=== PATIENT | female | born 1970 | race Two or more races ===

== ENCOUNTER 2019-01-01 15:09 | Outpatient (CLI) | payer SELFPAY | END 2019-01-01 17:09 | disposition home or self-care (01) | LOC: MRI 15:09 | DX: S83.207A Unspecified tear of unspecified meniscus, current injury, left knee, initial encounter (principal); X58.XXXA Exposure to other specified factors, initial encounter; Y92.9 Unspecified place or not applicable ==

== ENCOUNTER 2019-05-15 09:39 | Emergency (ER) | payer BC ==
[~2019-05-15] VITALS: Ht 165.1 cm; Wt 122.5 kg
[2019-05-15 10:00] VITALS: BP 130/85
--- NOTE | 2019-05-15 10:00 | NUR ---
ED Nurse Note: pt walked in to ED due to burning urination since last Fri. chills last night and no fever at the triage. AAO x4. respirations even and non-labored noted. urine sample sent. will wait for the further order.
[2019-05-15 10:21] LABS: APPEARANCE,URINE CLEAR; BILIRUBIN, URINE NEGATIVE (NEGATIVE); GLUCOSE, URINE (UA) NEGATIVE (NEGATIVE); KETONES,URINE NEGATIVE (NEGATIVE); LEUKOCYTE ESTERASE ,URINE 3+ (NEGATIVE); NITRITE,URINE POSITIVE (NEGATIVE); PH,URINE 6.5 (4.5-8.0); PROTEIN,URINE 1+ (NEGATIVE); UROBILINOGEN,URINE 1 MG/DL (0.0-1.0)
[2019-05-15 10:30] LABS: COLOR,URINE YELLOW
--- NOTE | 2019-05-15 10:40 | Emergency Room Report ---
History of Present Illness General Chief Complaint: Female Urogenital Problems Source: Patient Present Illness HPI Patient presents with complaints of dysuria and burning over the past several days Initially started on Saturday however the symptoms continued and worsened over the past 2 days Patient has 8 out of 10 pain cramping suprapubic area burning with urination Denies any chest pain or shortness of breath denies any upper abdominal pain questionable chills denies any rash Denies any flank pain however she does have lower back cramping as well Allergies: Coded Allergies: No Known Allergies (Unverified , 05/15/19) Patient History Past Medical History: see triage record Reviewed Nursing Documentation: PMH: Agreed; PSxH: Agreed Nursing Documentation-PMH Past Medical History: No Stated History Review of Systems All Other Systems: negative except mentioned in HPI Physical Exam Vital Signs Date Time Temp Pulse Resp B/P (MAP) Pulse Ox O2 Delivery O2 Flow Rate FiO2 05/15/19 09:52 98.1 99 18 130/85 (100) 95 Room Air Sp02 EP Interpretation: reviewed, normal General Appearance: mild distress - appears uncomfortable in pain Head: normocephalic, atraumatic Eyes: bilateral eye PERRL, bilateral eye EOMI ENT: hearing grossly normal, normal pharynx, TMs + canals normal, uvula midline Neck: full range of motion, supple, no meningismus, no bony tend Respiratory: lungs clear, normal breath sounds, no respiratory distress, no retraction, no accessory muscle use Cardiovascular #1: normal peripheral pulses, regular rate, rhythm, no JVD Gastrointestinal: normal bowel sounds, soft, non-distended, no guarding, no hernia, other - some discomfort over the suprapubic area Genitourinary: no CVA tenderness Musculoskeletal: normal inspection Neurologic: oriented x3, responsive Psychiatric: mood/affect normal Skin: no rash Lymphatic: normal inspection, no adenopathy Medical Decision Making Diagnostic Impression: Primary Impression: Pyelonephritis ER Course With the patient's history and examination, multiple differentials considered, including but not limited to , ectopic , ovarian torsion, gastritis, cholecystitis, pancreatitis, appendicitis Given the patient's examination and evaluation extensive blood work is initiated Patient's white blood cell count is mildly elevated urine sample does show positive nitrites and white blood cells Further IV antibiotics and hydration is provided on repeat evaluation patient does feel improved And will have initial conservative outpatient trial and return with any changes or concerns Labs Test 05/15/19 09:54 05/15/19 10:40 Urine Color Yellow Urine Appearance Clear Urine pH 6.5 (4.5-8.0) Urine Specific [place] 1.010 (1.005-1.035) Urine Protein 1+ (NEGATIVE) Urine Glucose (UA) Negative (NEGATIVE) Urine Ketones Negative (NEGATIVE) Urine Blood 3+ (NEGATIVE) Urine Nitrite Positive (NEGATIVE) Urine Bilirubin Negative (NEGATIVE) Urine Urobilinogen 1 MG/DL (0.0-1.0) Urine Leukocyte Esterase 3+ (NEGATIVE) Urine RBC 2-4 /HPF (0 - 2) Urine WBC 20-30 /HPF (0 - 2) Urine Squamous Epithelial Cells Few /LPF (NONE/OCC) Urine Bacteria Few /HPF (NONE) Urine HCG, Qualitative Negative (NEGATIVE) White Blood Count 12.3 K/UL (4.8-10.8) Red Blood Count 4.96 M/UL (4.20-5.40) Hemoglobin 14.5 G/DL (12.0-16.0) Hematocrit 43.7 % (37.0-47.0) Mean Corpuscular Volume 88 FL (80-99) Mean Corpuscular Hemoglobin 29.3 PG (27.0-31.0) Mean Corpuscular Hemoglobin Concent 33.2 G/DL (32.0-36.0) Red Cell Distribution Width 11.8 % (11.6-14.8) Platelet Count 268 K/UL (150-450) Mean Platelet Volume 8.0 FL (6.5-10.1) Neutrophils (%) (Auto) 63.4 % (45.0-75.0) Lymphocytes (%) (Auto) 20.3 % (20.0-45.0) Monocytes (%) (Auto) 11.2 % (1.0-10.0) Eosinophils (%) (Auto) 4.7 % (0.0-3.0) Basophils (%) (Auto) 0.4 % (0.0-2.0) Sodium Level 137 MMOL/L (136-145) Potassium Level 3.9 MMOL/L (3.5-5.1) Chloride Level 101 MMOL/L (98-107) Carbon Dioxide Level 27 MMOL/L (21-32) Anion Gap 9 mmol/L (5-15) Blood Urea Nitrogen 7 mg/dL (7-18) Creatinine 0.7 MG/DL (0.55-1.30) Estimat Glomerular Filtration Rate > 60 mL/min (>60) Glucose Level 111 MG/DL (74-106) Calcium Level 8.9 MG/DL (8.5-10.1) Last Vital Signs Date Time Temp Pulse Resp B/P (MAP) Pulse Ox O2 Delivery O2 Flow Rate FiO2 05/15/19 10:00 98.1 99 18 130/85 95 Room Air Status: improved Disposition: HOME, SELF-CARE Condition: Improved Scripts Phenazopyridine Hcl* (PYRIDIUM*) 200 Mg Tablet 200 MG ORAL THREE TIMES A DAY for 3 Days, #14 TAB 0 Refills Prov: Ashwini Nuñez DO 05/15/19 Ibuprofen* (MOTRIN*) 600 Mg Tablet 600 MG ORAL Q8H PRN for For Pain, #20 TAB 0 Refills Prov: Ashwini Nuñez DO 05/15/19 Cephalexin* (KEFLEX*) 500 Mg Tablet 500 MG ORAL EVERY 6 HOURS for 10 Days, CAP Prov: Ashwini Nuñez DO 05/15/19 Referrals: NON PHYSICIAN (PCP) Additional Instructions: Patient is provided with the discharge instructions notified to follow up with primary doctor in the next 2-3 days otherwise return to the er with any worsening symptoms. Please note that this report is being documented using [employer] technology. This can lead to erroneous entry secondary to incorrect interpretation by the dictating instrument. Ashwini Nuñez DO May 15, 2019 10:40
[2019-05-15] MEDS ORDERED: Ketorolac 30mg Inj IV ONE (10:45)
[2019-05-15] MEDS ORDERED: Phenazopyridine 200mg tab ORAL ONE (10:45)
[2019-05-15] MEDS ORDERED: cefTRIAXone 1 GM in NS 55 ML IVPB ONE (10:45)
[2019-05-15 10:52] LABS: BASOPHILS % (AUTO) 0.4 % (0.0-2.0); EOSINOPHILS % (AUTO) 4.7 % (0.0-3.0); HEMATOCRIT 43.7 % (37.0-47.0); HEMOGLOBIN 14.5 G/DL (12.0-16.0); LYMPHOCYTES % (AUTO) 20.3 % (20.0-45.0); MEAN CORPUSCULAR VOLUME 88 FL (80-99); MONOCYTES % (AUTO) 11.2 % (1.0-10.0); NEUTROPHILS % (AUTO) 63.4 % (45.0-75.0); PLATELET COUNT 268 K/UL (150-450); RED BLOOD COUNT 4.96 M/UL (4.20-5.40); RED CELL DISTRIBUTION WIDTH 11.8 % (11.6-14.8); WHITE BLOOD COUNT 12.3 K/UL (4.8-10.8)
[2019-05-15 11:04] LABS: ANION GAP 9 mmol/L (5-15); BLOOD UREA NITROGEN 7 mg/dL (7-18); CALCIUM 8.9 MG/DL (8.5-10.1); CARBON DIOXIDE 27 MMOL/L (21-32); CHLORIDE 101 MMOL/L (98-107); CREATININE 0.7 MG/DL (0.55-1.30); POTASSIUM 3.9 MMOL/L (3.5-5.1); SODIUM 137 MMOL/L (136-145)
[2019-05-15] MEDS ORDERED: IBUPROFEN600 MG ORAL (11:26)
[2019-05-15] MEDS ORDERED: PHENAZOPYRIDIN200 MG ORAL (11:26)
[2019-05-15] MEDS ORDERED: CEPHALEXIN500 M1 ORAL (11:26)
[2019-05-15 11:40] VITALS: BP 132/75
--- NOTE | 2019-05-15 11:40 | NUR ---
ER DISCHARGE NOTE: Patient is cleared to be discharged per ERMD, pt is aox4, on room air, with stable vital signs. pt was given dc and prescription instructions, pt was able to verbalize understanding, pt id band and iv site removed without complications. pt is able to ambulate with steady gait. pt took all belongings.
== END 2019-05-15 11:40 | disposition home or self-care (01) ==
LOC: EMR 10:05
DX: N12 Tubulo-interstitial nephritis, not specified as acute or chronic (principal)
CPT/HCPCS: 36415; 80048; 81003; 81025; 85025; 87086; 96361; 96365; 96375; 99284; J0696; J1885; J7030